=== PATIENT | female | born 1945 | race Caucasian/White ===

== ENCOUNTER 2022-07-28 12:37 | Outpatient (RCR) | payer MEDICARE, SELFPAY | END 2023-01-04 16:00 | disposition home or self-care (01) | LOC: HO.WCC 12:37 | PROVIDERS: PCP Family Medicine; Visit Provider Surgery | DX: L97.222 Non-pressure chronic ulcer of left calf with fat layer exposed (principal); Q82.0 Hereditary lymphedema; I87.2 Venous insufficiency (chronic) (peripheral); I73.9 Peripheral vascular disease, unspecified; G62.9 Polyneuropathy, unspecified; I10 Essential (primary) hypertension; Z79.01 Long term (current) use of anticoagulants; Z79.899 Other long term (current) drug therapy; Z87.891 Personal history of nicotine dependence; Z86.718 Personal history of other venous thrombosis and embolism | CPT/HCPCS: 11042; 11045; 29581; 97597; 99212; 99213 ==